=== PATIENT | female | born 1985 ===

== ENCOUNTER 2025-05-12 09:11 | Outpatient (CLI) | payer OTHER, SELFPAY ==
--- NOTE | 2025-05-12 09:15 | CRLHL7_ITS ---
For Patients: As a result of the Century Cures Act, medical imaging exams and procedure reports are released immediately into your electronic medical record. You may view this report before your referring provider. If you have questions, please contact your health care provider. BILATERAL BREAST MRI WITHOUT AND WITH GADOLINIUM CLINICAL HISTORY: Family history of breast cancer colon cancer and endometrial cancer. Dense breasts on mammography. INDICATION FOR BREAST MRI: Screening due to increased risk for breast cancer COMPARISON STUDIES: Bilateral mammogram 07/16/2024 CONTRAST: 15 mL Dotarem TECHNIQUE: The patient was positioned prone using a breast coil. Multiple imaging sequences were obtained using 1-1.5 mm thick slices with no gap. The image sequences include T2-weighted STIR in the axial plane, T1-weighted nonfat-saturated gradient echo in the axial plane, pre- and post-contrast T1-weighted FLASH 3D with fat suppression in the axial plane, and T1-weighted FLASH high resolution 3D with fat suppression in the sagittal plane. Image post-processing was performed on a [employer] workstation. Complex 3D rendering including maximum intensity projections (MIPS) and volumetric renderings were obtained to optimize visualization of the extent of pathology and relationship to the nipple, skin, and chest wall. This aids in determining feasibility of breast conservation surgery. Subtraction, multiplanar reconstruction, mean curve determination, and angiogenesis mapping were also performed. The study was technically adequate. FINDINGS: Amount of Fibroglandular Tissue: Extreme fibroglandular tissue Nabor. Breast Background Enhancement: Marked No suspicious enhancement in either breast Lymph Nodes: Lymph nodes within normal limits IMPRESSIONS AND RECOMMENDATIONS: Negative for signs of malignancy. Follow-up with annual screening mammography. If continuing breast MRI this is best offset from the mammogram by 6 months. BI-RADS: 1-negative Dictated by Liseth Null MD @ 05/12/2025 2:15:50 PM (Electronically Signed)
== END 2025-05-12 09:12 | disposition home or self-care (01) ==
LOC: MRI 09:12
PROVIDERS: Visit Provider Internal Medicine
DX: Z12.39 Encounter for other screening for malignant neoplasm of breast (principal); R92.333 Mammographic heterogeneous density, bilateral breasts; Z80.3 Family history of malignant neoplasm of breast
CPT/HCPCS: 77049; C8908; C8937; A9575

== ENCOUNTER 2025-05-30 07:38 | Outpatient (CLI) | payer OTHER, SELFPAY ==
--- NOTE | 2025-05-30 08:51 | P.ANES_ITS ---
Anesthesia Charges Start Date/Time Anesthesia Start Date: 05/30/25 Anesthesia Start Time: 08:26 Stop Date/Time Anesthesia Stop Date: 05/30/25 Anesthesia Stop Time: 08:50 Coding CPT Codes CPT Codes: LUIS LWR INTST SCR COLSC - 70620 ([id number]) P1 - NORMAL HEALTHY PATIENT, QK - RUSSIAN RUBBER 2-4 CNCRNT ANES PROC, QX - REVIEW ASSISTANT SVC W/ MED DIRECTION
--- NOTE | 2025-05-30 08:51 | W.ANESCHARGE ---
Anesthesia Charges Start Date/Time Anesthesia Start Date: 05/30/25 Anesthesia Start Time: 08:26 Stop Date/Time Anesthesia Stop Date: 05/30/25 Anesthesia Stop Time: 08:50 Coding CPT Codes CPT Codes: LUIS LWR INTST SCR COLSC - 91836 ([id number]) P1 - NORMAL HEALTHY PATIENT, QK - MORTGAGE LOAN PROCESSOR 2-4 CNCRNT ANES PROC, QX - DELIVERY ASSISTANT SVC W/ MED DIRECTION
--- NOTE | 2025-05-30 09:43 | P.ANES_ITS ---
Anesthesia Charges Start Date/Time Anesthesia Start Date: 05/30/25 Anesthesia Start Time: 08:26 Stop Date/Time Anesthesia Stop Date: 05/30/25 Anesthesia Stop Time: 08:50 Coding CPT Codes CPT Codes: LUIS LWR INTST SCR COLSC - 27964 ([id number]) QK - POST GRADUATE INTERNSHIP 2-4 CNCRNT ANES PROC, QX - HEAD UP OPERATOR HELPER SVC W/ MED DIRECTION, P1 - NORMAL HEALTHY PATIENT
--- NOTE | 2025-05-30 09:43 | W.ANESCHARGE ---
Anesthesia Charges Start Date/Time Anesthesia Start Date: 05/30/25 Anesthesia Start Time: 08:26 Stop Date/Time Anesthesia Stop Date: 05/30/25 Anesthesia Stop Time: 08:50 Coding CPT Codes CPT Codes: LUIS LWR INTST SCR COLSC - 26525 ([id number]) QK - BLAST FURNACE KEEPER 2-4 CNCRNT ANES PROC, QX - SCIENCE MANAGER SVC W/ MED DIRECTION, P1 - NORMAL HEALTHY PATIENT
== END 2025-05-30 07:39 | disposition home or self-care (01) ==
LOC: OP CLINIC 07:38
PROVIDERS: Visit Provider Surgery
DX: Z12.11 Encounter for screening for malignant neoplasm of colon (principal); Z15.060 Genetic susceptibility to colorectal cancer
CPT/HCPCS: 00812; 45378; J2704